=== PATIENT | male | born 1960 | race Caucasian/White ===

== ENCOUNTER 2017-08-27 09:18 | Observation (INO) | payer OTHER ==
[2017-08-27 09:18] VITALS: BMI 27.4
[2017-08-27] MEDS ORDERED: Aspirin 325 mg EC Tablets PO STA (09:55)
[2017-08-27 10:26] LABS: BASO % 0.5 % (0.0-2.0); EOS # 0.1 K/uL (0.0-0.7); EOS % 1.6 % (0.0-4.0); HEMOGLOBIN 16.7 g/dL (12.0-18.0); LYMPH # 2.4 K/uL (1.0-4.3); MEAN CELL VOLUME 85.9 fL (80.0-94.0); MEAN CORPUSCULAR HEMOGLOBIN 30.2 pg (27.0-31.0); MEAN CORPUSCULAR HGB CONC 35.1 g/dL (33.0-37.0); MEAN PLATELET VOLUME 8.5 fL (7.2-11.7); MONO # 0.9 K/uL (0.0-0.8); MONO % 9.8 % (0.0-10.0); NEUT # 5.7 K/uL (1.8-7.0); NEUT % 62.1 % (50.0-75.0); NRBC % 0.1 % (0.0-2.0); RBC 5.52 Mil/uL (4.40-5.90); RED CELL DISTRIBUTION WIDTH 13.6 % (11.5-14.5); WHITE BLOOD COUNT 9.2 K/uL (4.8-10.8)
[2017-08-27 10:30] LABS: ALT/SGPT 32 U/L (21-72); AST/SGOT 34 U/L (17-59); BLOOD UREA NITROGEN 16 mg/dL (9-20); CALCIUM 9.3 mg/dl (8.6-10.4); GFR AFRICAN-AMERICAN > 60; GFR NON-AFRICAN AMERICAN > 60; LIPASE 100 U/L (23-300)
[2017-08-27 10:45] LABS: B-TYPE NATRIURETIC PEPTIDE 14.2 pg/mL (0-900)
[2017-08-27] MEDS ORDERED: Iodixanol 320 MG/ML 100 ML BOTTLE IV ONE (11:54)
--- NOTE | 2017-08-27 12:23 | C.PDOC ---
History Of Present Illness 57yo male, with history of hypertension, presents to ED with complaints of chest pain for the past day, described as pressure like with associated shortness of breath. Patient states he went to work but the pain worsened, prompting his ER visit. He states the pain is non-radiating and denies any injuries or trauma. He denies any weakness, fever, chills, and offers no other medical complaints. Time Seen by Provider: 08/27/17 09:49 Chief Complaint (Nursing): Chest Pain History Per: Patient History/Exam Limitations: no limitations Onset/Duration Of Symptoms: Days (1) Current Symptoms Are (Timing): Still Present Quality: Pressure Past Medical History Reviewed: Historical Data, Nursing Documentation, Vital Signs Vital Signs: Last Vital Signs Temp 97.6 F 08/27/17 09:35 Pulse 75 08/27/17 12:51 Resp 19 08/27/17 12:51 BP 140/97 H 08/27/17 12:51 Pulse Ox 97 08/27/17 12:51 - Medical History PMH: HTN, Sleep Apnea Denies: Chronic Kidney Disease Surgical History: Appendectomy, Endoscopy - [facility] Procedures ENDOSC POLYPECTOMY OF LG INTEST (01/08/15) ESOPHAGOGASTRODUODENOSCOPY [EGD] W/CLOSED BIOPSY (01/08/15) Family History: States: Unknown Family Hx - Social History Hx Tobacco Use: No Hx Alcohol Use: No Hx Substance Use: No - Immunization History Hx Tetanus Toxoid Vaccination: No Hx Influenza Vaccination: No Hx Pneumococcal Vaccination: No Review Of Systems Except As Marked, All Systems Reviewed And Found Negative. Constitutional: Positive for: Sweats. Negative for: Fever, Chills Cardiovascular: Positive for: Chest Pain Respiratory: Positive for: Shortness of Breath Neurological: Negative for: Weakness Physical Exam - Physical Exam Appears: Non-toxic, No Acute Distress Skin: Normal Color, Warm, Dry Head: Atraumatic, Normacephalic Eye(s): bilateral: Normal Inspection, PERRL Neck: Normal ROM, Supple Chest: Symmetrical, No Tenderness Cardiovascular: Rhythm Regular Respiratory: Normal Breath Sounds, No Wheezing Gastrointestinal/Abdominal: Normal Exam, Soft, No Tenderness Back: Normal Inspection Extremity: Normal ROM, No Deformity Neurological/Psych: Oriented x3 ED Course And Treatment - Laboratory Results Result Diagrams: 08/27/17 10:11 08/27/17 10:11 O2 Sat by Pulse Oximetry: 98 (RA) Pulse Ox Interpretation: Normal Medical Decision Making Medical Decision Making: Impression: Chest pain Plan: -- Labs -- Aspirin 325mg PO -- CT Chest w/ contrast Time: [address] Mayes and patient to be admitted to OBS-Tele Disposition Discussed With : Christine Mayes Counseled Patient/Family Regarding: Studies Performed, Diagnosis - Disposition Disposition: HOSPITALIZED Disposition Time: 12:22 Condition: FAIR - Clinical Impression Clinical Impression: Chest pain - Scribe Statement The provider has reviewed the documentation as recorded by the Scribe Provider Attestation: All medical record entries made by the Scribe were at my direction and personally dictated by me. I have reviewed the chart and agree that the record accurately reflects my personal performance of the history, physical exam, medical decision making, and the department course for this patient. I have also personally directed, reviewed, and agree with the discharge instructions and disposition.
--- NOTE | 2017-08-27 14:07 | CT ---
PROCEDURE: CT scan chest dated 08/27/17 HISTORY: SOB. Technologist notation indicates prior endoscopy and appendectomy. COMPARISON: Comparison made with CT scan abdomen and pelvis 01/24/2017 which imaged both lung bases. . TECHNIQUE: Contiguous axial images were obtained through the chest with intravenous contrast enhancement. Sagittal and coronal reconstructions were performed. IV contrast: 100 cc Visipaque 320 Radiation dose (DLP): 406.2 mGy-cm. This CT exam was performed using one or more of the following dose reduction techniques: Automated exposure control, adjustment of the mA and/or kV according to patient size, and/or use of iterative reconstruction technique. FINDINGS: LUNGS: Mild passive/dependent type atelectasis both posterior lower lung zones. No focal consolidation. . There is also a elliptical shaped ground-glass translucent opacity seen in the superior aspect right lower lobe that may represent some mild localized pneumonitis or atelectasis. . MEDIASTINUM: Heart size is within range of normal. No significant pericardial effusion. Ascending thoracic aorta measures approximately 3.1 cm and descending thoracic aorta measures approximately 2.18 cm. Three-vessel arch. No evidence of aneurysmal dilatation or aortic dissection. . Pulmonary trunk measures approximately 2.5 cm. . This study was not dedicated to assess for pulmonary embolus however no large central filling defects are identified No significant mediastinal or hilar adenopathy. Central airway is midline and patent. No large central endoluminal lesions. There is a tiny hiatal hernia. PLEURA: There is a small No pleural fluid. No pneumothorax. BONES: Minor multilevel degenerative spondylosis of the thoracic spine. No acute compression fractures no retropulsed fragments. UPPER ABDOMEN: Mild -moderate fatty hepatic infiltration. OTHER FINDINGS: None. IMPRESSION: . There is a small elliptical shaped the ground-glass translucent density superior aspect right lower lobe that is of uncertain etiology though could represent localized pneumonitis or atelectasis. In addition, is minor passive/dependent type atelectasis both posterior lower lung zones. No effusion or pneumothorax.
[2017-08-27 18:36] LABS: CK-MB 1.24 ng/mL (0.0-3.38)
--- NOTE | 2017-08-27 23:39 | CP.PCM.HP ---
Past Patient History - Infectious Disease Hx of Infectious Diseases: None - Past Medical History & Family History Past Medical History?: Yes - Past Social History Smoking Status: Never Smoked - CARDIAC Hx Hypertension: Yes - PULMONARY Hx Sleep Apnea: Yes - NEUROLOGICAL Hx Neurological Disorder: No - HEENT Hx HEENT Problems: Yes - RENAL Hx Chronic Kidney Disease: No - ENDOCRINE/METABOLIC Hx Endocrine Disorders: No - HEMATOLOGICAL/ONCOLOGICAL Hx Blood Disorders: No - INTEGUMENTARY Hx Dermatological Problems: No - MUSCULOSKELETAL/RHEUMATOLOGICAL Hx Musculoskeletal Disorders: No - GASTROINTESTINAL Hx Gastrointestinal Disorders: No - GENITOURINARY/GYNECOLOGICAL Hx Genitourinary Disorders: No - PSYCHIATRIC Hx Substance Use: No - SURGICAL HISTORY Hx Appendectomy: Yes - ANESTHESIA Hx Anesthesia: Yes Hx Anesthesia Reactions: No Hx Malignant Hyperthermia: No Meds Allergies/Adverse Reactions: Allergies Allergy/AdvReac Type Severity Reaction Status Date / Time chickenlivers Allergy Mild RASH Uncoded 08/27/17 09:35 Results - Vital Signs Recent Vital Signs: Last Vital Signs Temp 97.4 F L 08/27/17 15:00 Pulse 87 08/27/17 16:13 Resp 20 08/27/17 15:00 BP 146/83 08/27/17 15:00 Pulse Ox 96 08/27/17 15:00 - Labs Result Diagrams: 08/27/17 10:11 08/27/17 10:11 Labs: Laboratory Results - last 24 hr 08/27/17 08/27/17 08/27/17 10:11 10:11 18:08 WBC 9.2 RBC 5.52 Hgb 16.7 Hct 47.4 MCV 85.9 MCH 30.2 MCHC 35.1 RDW 13.6 Plt Count 297 MPV 8.5 Neut % (Auto) 62.1 Lymph % (Auto) 26.0 Crowley % (Auto) 9.8 Eos % (Auto) 1.6 Baso % (Auto) 0.5 Neut # (Auto) 5.7 Lymph # (Auto) 2.4 Crowley # (Auto) 0.9 H Eos # (Auto) 0.1 Baso # (Auto) 0.0 Sodium 142 Potassium 3.8 Chloride 100 Carbon Dioxide 31 H Anion Gap 14 BUN 16 Creatinine 1.1 Est GFR ( Amer) > 60 Est GFR (Non-Af Amer) > 60 Random Glucose 85 Calcium 9.3 Total Bilirubin 0.7 AST 34 ALT 32 Alkaline Phosphatase 79 Total Creatine Kinase 115 CK-MB (Mass) 1.24 Troponin I < 0.0120 < 0.0120 NT-Pro-B Natriuret Pep 14.2 Total Protein 7.8 Albumin 4.0 Globulin 3.8 Albumin/Globulin Ratio 1.0 Lipase 100
[2017-08-28] MEDS ORDERED: Enoxaparin 40 mg Syringe SC SCH (10:00)
--- NOTE | 2017-08-28 15:01 | CARD ---
APPROVED REPORT EKG Measurement Heart [id number] <Conclusion> Normal sinus rhythm Normal ECG
[2017-08-28 15:54] VITALS: BP 110/67; PULSE 65; RESP 18; TEMP 97.9; O2SAT 95
--- NOTE | 2017-08-28 16:31 | CARD ---
APPROVED REPORT EXAM: Two-dimensional and M-mode echocardiogram with Doppler and color Doppler. Other Information Quality : GoodRhythm : INDICATION Chest Pain RISK FACTORS Hypertension 2D DIMENSIONS IVSd1.1 (0.7-1.1cm)LVDd4.2 (3.9-5.9cm) PWd0.9 (0.7-1.1cm)LVDs2.2 (2.5-4.0cm) FS (%) 47.5 %LVEF (%)79.3 (>50%) M-Mode DIMENSIONS Left Atrium (MM)2.83 (2.5-4.0cm)Aortic Root3.06 (2.2-3.7cm) Aortic Cusp Exc.1.77 (1.5-2.0cm) Mitral Valve MV E Zlqvpzcj54.4cm/sMV A Smxxqmjp09.3cm/sE/A ratio0.8 TDI E/Lateral E'0.0E/Medial E'0.0 Tricuspid Valve TR Peak [id number]/sTR Peak Gr.28mmHg LEFT VENTRICLE The left ventricle is normal size. There is normal left ventricular wall thickness. The left ventricular function is normal. The left ventricular ejection fraction is within the normal range. There is normal LV segmental wall motion. The left ventricular diastolic function is normal for age. Normal left atrial pressure . RIGHT VENTRICLE The right ventricle is normal size. There is normal right ventricular wall thickness. ATRIA The left atrium size is normal. The right atrium size is normal. The interatrial septum is intact with no evidence for an atrial septal defect. AORTIC VALVE The aortic valve is normal in structure. No aortic regurgitation is present. MITRAL VALVE The mitral valve is normal in structure. There is no mitral valve regurgitation noted. TRICUSPID VALVE The tricuspid valve is normal in structure. There is mild tricuspid regurgitation. Right ventricular systolic pressure is estimated at less than 30 mmHg. PULMONIC VALVE The pulmonary valve is normal in structure. There is trace pulmonic valvular regurgitation. GREAT VESSELS The aortic root is normal in size. The IVC is normal in size and collapses >50% with inspiration. PERICARDIAL EFFUSION There is no pericardial effusion. <Conclusion> Normal bi-ventricular function. Physiological tricuspid - pulmonic regurgitation. No pericardial effusion.
--- NOTE | 2017-08-28 17:39 | CP.PCM.PN ---
Subjective - Date & Time of Evaluation Date of Evaluation: 08/28/17 Time of Evaluation: 11:50 - Subjective Subjective: Patient seen today, denies any sob, palpitations, dizziness, chest pain, troponin x 3 - negative Objective - Vital Signs/Intake and Output Vital Signs (last 24 hours): Temp Pulse Resp BP Pulse Ox 97.9 F 65 18 110/67 95 08/28/17 15:52 08/28/17 16:49 08/28/17 15:52 08/28/17 15:52 08/28/17 15:52 Intake and Output: 08/28/17 08/28/17 06:59 18:59 Intake Total 120 Balance 120 - Medications Medications: Current Medications Enoxaparin Sodium (Lovenox) 40 mg SC DAILY [facility] Last Admin: 08/28/17 11:23 Dose: 40 mg Hydrochlorothiazide (Microzide) 12.5 mg PO DAILY [facility] Last Admin: 08/28/17 10:28 Dose: 12.5 mg Losartan Potassium (Cozaar) 100 mg PO DAILY [facility] Last Admin: 08/28/17 10:28 Dose: 100 mg Pantoprazole Sodium (Protonix Inj) 40 mg IVP Q12H [facility] Last Admin: 08/28/17 14:35 Dose: 40 mg Pneumococcal Polyvalent Vaccine (Pneumovax 23 Vaccine) 0.5 ml IM .ONCE ONE Stop: 08/30/17 10:01 - Labs Labs: 08/27/17 10:11 08/27/17 10:11
[2017-08-30] MEDS ORDERED: Pneumococcal 23-Valent Vaccine IM ONE (10:00)
== END 2017-08-28 19:31 | disposition home or self-care (01) ==
LOC: C.ER 09:18 → C.9E 12:21 → C.6T 12:51
PROVIDERS: ADMIT Internal Medicine; ATTEND Internal Medicine
DX: R07.9 Chest pain, unspecified (principal); R06.02 Shortness of breath; I10 Essential (primary) hypertension; G47.30 Sleep apnea, unspecified
CPT/HCPCS: 36415; 71260; 80053; 83690; 83880; 84484; 85025; 93005; 93306; 94660; 99285; C9113; G0378; J1650; Q9967

== ENCOUNTER 2018-06-17 08:42 | Outpatient (CLI) | payer OTHER | END 2018-06-17 08:43 | disposition home or self-care (01) | LOC: C.LAB 08:42 | DX: I10 Essential (primary) hypertension (principal); K59.00 Constipation, unspecified; R10.11 Right upper quadrant pain ==

== ENCOUNTER → 2018-07-13 | Outpatient (CLI) | payer OTHER | LOC: C.USIC 07:29 ==